=== PATIENT | male | born 1950 | race Hispanic/Latino ===

== ENCOUNTER 2025-05-25 10:52 | Inpatient (IN) | payer MEDICARE ==
[2025-05-23 15:15] LABS: BASOPHILS % 0.3 % (0.0-1.0); EOSINOPHILS % 0.3 % (0.0-6.0); LYMPHOCYTES % 14.8 % (18.0-39.1); MONOCYTES % 9.1 % (4.4-11.3); NEUTROPHILS % 74.8 % (38.7-80.0); RED CELL DISTRIBUTION WIDTH 12.3 % (11.7-14.4)
[2025-05-23 15:37] LABS: EST GLOMERULAR FILTRATION RATE 91.0 ML/MIN (>=60)
[2025-05-25] VITALS (12 sets, daily range): BP systolic 137–177; BP diastolic 59–95; PULSE 63–86; RESP 12–20; TEMP 97.4–99; O2SAT 91–97
[~2025-05-25] VITALS: Ht 170.2 cm; Wt 84.8 kg
[~2025-05-25 10:52] MED LIST: ASPIRIN81 MG PO; ATORVASTATIN CA20 MG PO; FARXIGA10 MG PO; FERROUS SULFAT325 MG PO; FINASTERIDE5 MG PO; FLOMAX0.4 MG PO; FLONASE ALLERG9.9 ML INH; GLIMEPIRIDE2 MG PO; GLUCOSE4 GM PO; ISOSORBIDE MONO20 MG PO; LOSARTAN-HCTZ1 EAC2 PO; METFORMIN HCL500 MG PO; PLAVIX75 MG PO; XANAX1 MG PO
[2025-05-25] MEDS ORDERED: LIDOCAINE HCL 2% LOCAL INJ 5 ML SDV VIAL INJ ONE (13:45)
[2025-05-25] MEDS ORDERED: PROPOFOL IV EMULSION 10 MG/ML 20 ML VIAL ONE (13:45)
[2025-05-25] MEDS ORDERED: ROCURONIUM BROMIDE 1 ML IV ONE ×2 (13:45→15:28)
[2025-05-25] MEDS: SODIUM CHLORIDE 0.9% 1000ML 1,000 ML ONE (13:46)
[2025-05-25] MEDS: CEFAZOLIN SODIUM 2 GM ONE (13:46)
[2025-05-25] MEDS ORDERED: FENTANYL CITRATE/PF 100MCG/2 ML INJ ONE (14:09)
[2025-05-25] MEDS ORDERED: ACETAMINOPHEN 1000 MG/100 ML IV PRN (14:45)
[2025-05-25] MEDS ORDERED: ONDANSETRON HCL INJ 2MG/ML 2ML 2 MG/ML VIAL IV PRN (14:45)
[2025-05-25] MEDS ORDERED: DIPHENHYDRAMINE HCL INJ 50 MG/ML VIAL IM PRN (14:45)
[2025-05-25] MEDS ORDERED: NALOXONE HCL INJ 0.4 MG/ML AMP IV PRN (14:45)
[2025-05-25] MEDS: SODIUM CHLORIDE 0.9% 1000ML 1,000 ML IV SCH (14:45)
[2025-05-25] MEDS ORDERED: EPHEDRINE SULFATE INJ 50 MG/ML VIAL ONE (14:48)
[2025-05-25] MEDS: SODIUM CHLORIDE 0.9% 250ML IRRIG IR SCH (15:00)
[2025-05-25] MEDS ORDERED: ACETAMINOPHEN 1000 MG/100 ML 100 ML IV ONE (15:08)
[2025-05-25] MEDS ORDERED: DEXAMETHASONE SOD PHOS INJ 4 MG/ML SDV ONE (15:40)
[2025-05-25] MEDS ORDERED: SUGAMMADEX SODIUM 200 MG/2 ML VIAL IV ONE (15:56)
[2025-05-25 16:36] LABS: BASOPHILS % 0.2 % (0.0-1.0); EOSINOPHILS % 0.2 % (0.0-6.0); LYMPHOCYTES % 7.5 % (18.0-39.1); MONOCYTES % 4.1 % (4.4-11.3); NEUTROPHILS % 87.5 % (38.7-80.0); RED CELL DISTRIBUTION WIDTH 12.0 % (11.7-14.4)
[2025-05-25] MEDS: MORPHINE SULFATE 1 MG/ML 30ML PCA IV PRN (16:41)
[2025-05-25 17:00] LABS: EST GLOMERULAR FILTRATION RATE 93.0 ML/MIN (>=60)
[2025-05-25] MEDS: MUPIROCIN 2% OINT 22 GM TUBE TOP SCH (18:27)
[2025-05-25] MEDS: HYDRALAZINE HCL 20 MG/ML VIAL IV PRN (18:40)
[2025-05-25] MEDS: MORPHINE SULFATE 1 MG/ML 30ML PCA ONE (19:52)
[2025-05-26] VITALS (23 sets, daily range): BP systolic 112–173; BP diastolic 55–149; PULSE 56–108; RESP 10–20; TEMP 97.8–99; O2SAT 93–99
[2025-05-26 06:24] LABS: BASOPHILS % 0.1 % (0.0-1.0); EOSINOPHILS % 0.0 % (0.0-6.0); LYMPHOCYTES % 3.0 % (18.0-39.1); MONOCYTES % 7.3 % (4.4-11.3); NEUTROPHILS % 89.2 % (38.7-80.0); RED CELL DISTRIBUTION WIDTH 12.3 % (11.7-14.4)
[2025-05-26 06:50] LABS: EST GLOMERULAR FILTRATION RATE 91.0 ML/MIN (>=60)
[2025-05-26] MEDS ORDERED: MELATONIN 3 MG TAB PO PRN (08:00)
[2025-05-26] MEDS ORDERED: ALBUTEROL/IPRATROPIUM 3 ML NEB NEB PRN (08:00)
[2025-05-26] MEDS: SODIUM BICARBONATE 650 MG TAB PO SCH (09:00)
[2025-05-26] MEDS: METOPROLOL TARTRATE INJ 1 MG/ML VIAL IV PRN (11:57)
[2025-05-27] VITALS (27 sets, daily range): BP systolic 127–187; BP diastolic 62–123; PULSE 52–82; RESP 15–31; TEMP 97.9–98.2; O2SAT 82–100
[2025-05-27 05:19] LABS: BASOPHILS % 0.2 % (0.0-1.0); EOSINOPHILS % 0.1 % (0.0-6.0); LYMPHOCYTES % 7.3 % (18.0-39.1); MONOCYTES % 9.2 % (4.4-11.3); NEUTROPHILS % 82.3 % (38.7-80.0); RED CELL DISTRIBUTION WIDTH 12.2 % (11.7-14.4)
[2025-05-27 06:21] LABS: EST GLOMERULAR FILTRATION RATE 93.0 ML/MIN (>=60)
[2025-05-27] MEDS ORDERED: SODIUM BICARBONATE 8.4% SYRING 100 ML in DEXTROSE 5% 1,000 ML IV SCH (07:30)
[2025-05-27] MEDS: SODIUM BICARBONATE 8.4% VIAL 100 ML in DEXTROSE 5% 1,000 ML IV SCH (10:16)
[2025-05-27] MEDS ORDERED: BISACODYL 10 MG SUPP PR PRN (14:15)
[2025-05-27] MEDS: BISACODYL 10 MG SUPP PR ONE (16:02)
[2025-05-27] MEDS: SENNA-S TABLET PO SCH (16:02)
[2025-05-27] MEDS: Morphine 2mg Syringe 2 MG/ML SYR IV PRN (18:08)
[2025-05-27] MEDS: SODIUM BICARBONATE 8.4% SYRING 50 ML ONE (22:01)
[2025-05-27] MEDS: SODIUM CHLORIDE 0.9% 1000ML 0 ML ONE (22:01)
[2025-05-27] MEDS: DEXTROSE 5% 1,000 ML IV ONE (22:13)
[2025-05-28] VITALS (23 sets, daily range): BP systolic 146–182; BP diastolic 60–90; PULSE 51–63; RESP 16–26; TEMP 98.4–99.1; O2SAT 87–100
[2025-05-28 06:47] LABS: BASOPHILS % 0.2 % (0.0-1.0); EOSINOPHILS % 0.2 % (0.0-6.0); LYMPHOCYTES % 7.2 % (18.0-39.1); MONOCYTES % 10.1 % (4.4-11.3); NEUTROPHILS % 82.0 % (38.7-80.0); RED CELL DISTRIBUTION WIDTH 11.8 % (11.7-14.4)
[2025-05-28 07:23] LABS: EST GLOMERULAR FILTRATION RATE 99.0 ML/MIN (>=60)
[2025-05-28] MEDS: HYDRALAZINE HCL 25 MG TAB PO SCH (11:53)
[2025-05-28] MEDS: SODIUM BICARBONATE 8.4% VIAL 50 ML in DEXTROSE 5% 1,000 ML IV SCH (11:54)
[2025-05-28] MEDS: SODIUM BICARBONATE 8.4% SYRING 100 ML ONE (17:38)
[2025-05-28] MEDS: DEXTROSE 5% 1,000 ML IV ONE (17:38)
[2025-05-29] VITALS (21 sets, daily range): BP systolic 132–171; BP diastolic 62–119; PULSE 53–80; RESP 16–22; TEMP 97.6–99.7; O2SAT 89–100
[2025-05-29 07:19] LABS: BASOPHILS % 0.3 % (0.0-1.0); EOSINOPHILS % 0.3 % (0.0-6.0); LYMPHOCYTES % 11.2 % (18.0-39.1); MONOCYTES % 10.5 % (4.4-11.3); NEUTROPHILS % 77.2 % (38.7-80.0); RED CELL DISTRIBUTION WIDTH 11.8 % (11.7-14.4)
[2025-05-29 07:51] LABS: EST GLOMERULAR FILTRATION RATE 100.0 ML/MIN (>=60)
[2025-05-29] MEDS: POTASSIUM CHLORIDE 20 MEQ TAB CR PO STA (09:09)
[2025-05-30] VITALS (17 sets, daily range): BP systolic 148–186; BP diastolic 66–88; PULSE 55–79; RESP 14–26; TEMP 97.6–99.3; O2SAT 88–98
[2025-05-30] MEDS: ACETAMINOPHEN/CODEINE 300MG - 30MG TAB PO PRN (09:11)
[2025-05-30] MEDS ORDERED: DEXTROSE 50% SYRINGE 50 ML IV PRN (13:45)
[2025-05-30] MEDS: INSULIN LISPRO 100 UNIT/1 ML 3ML VIAL SQ SCH (19:07)
[2025-05-31] VITALS (10 sets, daily range): BP systolic 126–173; BP diastolic 73–124; PULSE 57–79; RESP 11–28; TEMP 97.9–98; O2SAT 91–96
[2025-05-31] MEDS ORDERED: PERCOCET 5-3251 EACH PO (08:56)
[2025-05-31] MEDS ORDERED: HYDRALAZINE HCL25 MG PO (08:56)
[2025-05-31] MEDS: HYDRALAZINE HCL 25 MG TAB PO SCH (09:58)
== END 2025-05-31 13:10 | disposition home or self-care (01) | DRG 659 ==
LOC: OR 10:52 → PACU V 14:59 → ICU 17:03
PROVIDERS: ADMIT Internal Medicine; ATTEND Internal Medicine
PROC: 0TB10ZZ Excision of Left Kidney, Open Approach (ICD-10-PCS; principal; 2025-05-26)
DX: N28.89 Other specified disorders of kidney and ureter (principal); J96.01 Acute respiratory failure with hypoxia; E87.20 Acidosis, unspecified; J81.1 Chronic pulmonary edema; N28.1 Cyst of kidney, acquired; I51.7 Cardiomegaly; I10 Essential (primary) hypertension; E11.9 Type 2 diabetes mellitus without complications; N40.0 Benign prostatic hyperplasia without lower urinary tract symptoms; E66.9 Obesity, unspecified; Z68.29 Body mass index [BMI] 29.0-29.9, adult; Z87.891 Personal history of nicotine dependence
CPT/HCPCS: 36415; 71045; 71046; 80048; 80053; 82948; 83735; 85025; 86850; 86900; 86920; 88112; 88304; 88305; 93005; 94799; 99252; J0360; J0690; J1100; J1200; J2003; J2270; J2405; J7030; J7070